=== PATIENT | male | born 1975 | race Two or more races ===

== ENCOUNTER 2021-10-01 05:55 | Emergency (ER) | payer BC, OTHER ==
[~2021-10-01] VITALS: Ht 193 cm; Wt 95.3 kg
--- NOTE | 2021-10-01 06:04 | NUR ---
PATIENT BIBRA FROM HOME C/O POSS OD ON TRAMADOL. PATIENT ALERT AND ORIENTED X3. AMBULATORY WITH NON LABORED BREATHING X3. PATIENT IN BED 10 ON MONITOR.
--- NOTE | 2021-10-01 06:16 | NUR ---
PT AMBULATORY TO THE BATHROOM WITH STEADY GAITS. REFUSED TO PROVIDE URINE SAMPLE.
[2021-10-01] MEDS ORDERED: NALO4SPR BNOSTRILS (07:02)
--- NOTE | 2021-10-01 07:10 | NUR ---
Patient discharged to home in stable condition. Written and verbal after care instructions given. Patient verbalizes understanding of instruction.
[2021-10-01 07:11] VITALS: BP 152/87
== END 2021-10-01 07:11 | disposition home or self-care (01) ==
LOC: ER 05:57
DX: T40.421A Poisoning by tramadol, accidental (unintentional), initial encounter (principal); F12.90 Cannabis use, unspecified, uncomplicated; Y92.89 Other specified places as the place of occurrence of the external cause